=== PATIENT | male | born 1995 | race Caucasian/White ===

== ENCOUNTER 2017-04-28 12:59 | Emergency (ER) | payer SELFPAY ==
[2017-04-28] MEDS ORDERED: Ibuprofen 800 MG TAB ONE (14:23)
[2017-04-28] MEDS ORDERED: Gentamicin Ophth Ointment 0.3% 3.5 gm Tube ONE (14:23)
== END 2017-04-28 14:35 | disposition home or self-care (01) ==
LOC: MADERS 12:59
DX: H20.9 Unspecified iridocyclitis (principal)
CPT/HCPCS: 99282

== ENCOUNTER 2017-10-03 10:04 | Emergency (ER) | payer OTHER ==
[2017-10-03] MEDS ORDERED: MORPHINE 10 MG/ML SYRINGE ONE (10:57)
[2017-10-03] MEDS ORDERED: Ondansetron HCl/PF 4 MG/2 ML Vial ONE (10:58)
[2017-10-03] MEDS ORDERED: Ketorolac Tromethamine 30 MG/ML VIAL ONE (10:58)
[2017-10-03] MEDS ORDERED: Metoclopramide HCl 10 MG/2 ML VIAL ONE (10:58)
[2017-10-03 11:23] LABS: Bilirubin Moderate (Negative); Blood, Urine Negative (Negative); Clarity Clear (Clear); Glucose, Urine (Dipstick) >=1000 mg/dL (Negative); Leukocyte Negative (Negative); Nitrite Negative (Negative); Protein, Urine (Dipstick) 30 mg/dL (Neg-Trace); Specific Gravity, Urine 1.025 (1.005-1.030)
[2017-10-03 11:38] LABS: #Basophils 0.1 thou/uL (0.0-0.2); #Eosinphils 0.1 thou/uL (0.0-0.7); #Lymphocytes 2.5 thou/uL (1.20-3.40); #Monocytes 0.8 thou/uL (0.11-0.59); #Neutrophils 4.7 thou/uL (1.40-6.50); %Basophils 0.9 % (0.0-1.0); %Eosinophils 1.7 % (0.0-10.0); %Lymphocytes 30.7 % (21.0-51.0); %Monocytes 9.7 % (0.0-10.0); Hemoglobin 16.1 g/dL (14.0-18.0); Mean Corpuscular HGB CONC 33.4 g/dL (32.0-36.0); Mean Corpuscular Hemoglobin 27.2 pg (27.0-31.0); Mean Corpuscular Volume 81.4 fl (80.0-94.0); Mean Platelet Volume 7.5 fL (7.4-10.4); Platelet Count 308 thou/uL (130-400); RBC Distribution Width 10.3 % (11.5-14.5); Red Blood Cell (RBC) Count 5.93 mill/uL (4.70-6.10); White Blood Cell (WBC) Count 8.2 thou/uL (4.8-10.8)
[2017-10-03 11:44] LABS: Bacteria/HPF Rare-Few HPF (None Seen); Crystals/HPF RARE AMORPH URATES HPF (Negative); RBC/HPF None Seen HPF (0-3); Squamous Epithelial 0-3 HPF (0-3); WBC/HPF None Seen HPF (0-3)
[2017-10-03 11:53] LABS: ALT (SGPT) 24 U/L (8-55); AST (SGOT) 11 U/L (5-34); Albumin 4.5 g/dL (3.5-5.0); Alkaline Phosphatase 58 U/L (40-150); Anion Gap 15 mmol/L (10-20); BUN (Urea Nitrogen) 14 mg/dL (8.9-20.6); Bilirubin, Total 0.9 mg/dL (0.2-1.2); Calc. Creatinine Clearance 0 mL/min (70-130); Calcium 9.7 mg/dL (7.8-10.44); Carbon Dioxide 25 mmol/L (22-29); Chloride 103 mmol/L (98-107); Estimated GFR-MDRD Greater than 90; Globulin 2.8 g/dL (2.4-3.5); Glucose 223 mg/dL (70-105); Lipase 20 U/L (8-78); Potassium 4.4 mmol/L (3.5-5.1); Protein, Total 7.3 g/dL (6.0-8.3); Sodium 139 mmol/L (136-145)
[2017-10-03] MEDS ORDERED: Sodium Chloride 0.9% 1,000 ML BAG ONE (14:12)
== END 2017-10-03 13:32 | disposition home or self-care (01) ==
LOC: MADERS 10:04
DX: E86.0 Dehydration (principal); R11.2 Nausea with vomiting, unspecified; E11.9 Type 2 diabetes mellitus without complications
CPT/HCPCS: 80053; 81001; 82150; 83690; 85025; 85652; 87086; 96361; 96374; 96375; J1885; J2270; J2405; J2765; J7050

== ENCOUNTER 2021-03-03 20:23 | Emergency (ER) | payer OTHER ==
[2021-03-03 21:24] LABS: #Basophils 0.1 thou/uL (0.0-0.2); #Lymphocytes 0.6 thou/uL (1.20-3.40); #Monocytes 0.7 thou/uL (0.11-0.59); #Neutrophils 5.2 thou/uL (1.40-6.50); %Basophils 1.2 % (0.0-1.0); %Eosinophils 0.2 % (0.0-10.0); %Lymphocytes 8.8 % (21.0-51.0); %Monocytes 10.7 % (0.0-10.0); %Neutrophils 79.2 % (42.0-75.0); Hemoglobin 14.4 g/dL (14.0-18.0); Mean Corpuscular HGB CONC 32.1 g/dL (32.0-36.0); Mean Corpuscular Hemoglobin 26.8 pg (27.0-31.0); Mean Corpuscular Volume 83.4 fL (78.0-98.0); Mean Platelet Volume 8.3 fL (7.4-10.4); Platelet Count 171 thou/uL (130-400); RBC Distribution Width 11.1 % (11.5-14.5); Red Blood Cell (RBC) Count 5.38 mill/uL (4.70-6.10); White Blood Cell (WBC) Count 6.5 thou/uL (4.8-10.8)
[2021-03-03] MEDS ORDERED: Acetaminophen 500 MG TAB ONE (21:26)
[2021-03-03] MEDS ORDERED: Ondansetron PF 4 MG/2 ML Vial ONE (21:26)
[2021-03-03] MEDS ORDERED: Sodium Chloride 0.9% 1,000 ML ONE (21:26)
[2021-03-03 21:39] LABS: Base Excess-Venous 2.3 mmol/L (-2.0 to 3.0); Bicarbonate (HCO3v) 24.6 mmol/L (22.0-28.0); CO2 Tension (PvCO2) 30.8 mmHg (42.0-51.0); Calcium, Ionized 0.92 mmol/L (1.15-1.33); Chloride 102 mmol/L (98-107); Hemoglobin - Calc 14.5 g/dL (14.0-18.0); Potassium 3.8 mmol/L (3.5-5.1); Sodium 138 mmol/L (138-145); T. Carbon Dioxide 25.6 mmol/L (22.0-28.0); vO2 Saturation-calc 76.4 % (60.0-85.0)
[2021-03-03 21:42] LABS: ALT (SGPT) 21 U/L (8-55); AST (SGOT) 15 U/L (5-34); Albumin 4.4 g/dL (3.5-5.0); Alkaline Phosphatase 77 U/L (40-110); Anion Gap 17 mmol/L (10-20); BUN (Urea Nitrogen) 15 mg/dL (8.9-20.6); Bilirubin, Total 0.5 mg/dL (0.2-1.2); Calc. Creatinine Clearance 0 mL/min (70-130); Calcium 9.3 mg/dL (7.8-10.44); Carbon Dioxide 24 mmol/L (22-29); Chloride 101 mmol/L (98-107); Globulin 2.8 g/dL (2.4-3.5); Glucose 339 mg/dL (70-105); Magnesium 1.6 mg/dL (1.6-2.6); Phosphorus 2.8 mg/dL (2.3-4.7); Potassium 3.9 mmol/L (3.5-5.1); Protein, Total 7.2 g/dL (6.0-8.3); Sodium 138 mmol/L (136-145)
[2021-03-03] MEDS ORDERED: Ibuprofen 800 MG TAB ONE (22:34)
[2021-03-03 23:05] LABS: SARS-CoV-2 NAA Rapid Test DETECTED (NotDetected)
== END 2021-03-03 23:21 | disposition home or self-care (01) ==
LOC: MADERS 20:23
DX: U07.1 COVID-19 (principal); E13.40 Other specified diabetes mellitus with diabetic neuropathy, unspecified; Z79.4 Long term (current) use of insulin
CPT/HCPCS: 0240U; 36416; 80053; 82330; 82435; 82803; 83735; 84100; 84132; 84295; 85014; 85025; 96374; J2405; J7050

== ENCOUNTER 2021-03-11 10:22 | Emergency (ER) | payer OTHER ==
[2021-03-11] MEDS ORDERED: Ondansetron PF 4 MG/2 ML Vial ONE (11:09)
[2021-03-11 11:24] LABS: #Lymphocytes 1.2 thou/uL (1.20-3.40); #Monocytes 0.8 thou/uL (0.11-0.59); #Neutrophils 4.8 thou/uL (1.40-6.50); %Basophils 0.4 % (0.0-1.0); %Eosinophils 0.2 % (0.0-10.0); %Lymphocytes 17.5 % (21.0-51.0); %Monocytes 11.8 % (0.0-10.0); %Neutrophils 70.1 % (42.0-75.0); Hemoglobin 16.2 g/dL (14.0-18.0); Mean Corpuscular HGB CONC 31.6 g/dL (32.0-36.0); Mean Corpuscular Hemoglobin 26.2 pg (27.0-31.0); Mean Corpuscular Volume 82.7 fL (78.0-98.0); Mean Platelet Volume 9.2 fL (7.4-10.4); Platelet Count 202 thou/uL (130-400); RBC Distribution Width 11.1 % (11.5-14.5); Red Blood Cell (RBC) Count 6.21 mill/uL (4.70-6.10); White Blood Cell (WBC) Count 6.8 thou/uL (4.8-10.8)
[2021-03-11 11:37] LABS: ALT (SGPT) 32 U/L (8-55); AST (SGOT) 26 U/L (5-34); Albumin 4.5 g/dL (3.5-5.0); Alkaline Phosphatase 80 U/L (40-110); Anion Gap 24 mmol/L (10-20); BUN (Urea Nitrogen) 23 mg/dL (8.9-20.6); Bilirubin, Total 0.7 mg/dL (0.2-1.2); Calc. Creatinine Clearance 0 mL/min (70-130); Calcium 9.1 mg/dL (7.8-10.44); Carbon Dioxide 23 mmol/L (22-29); Globulin 3.2 g/dL (2.4-3.5); Glucose 281 mg/dL (70-105); Potassium 4.3 mmol/L (3.5-5.1); Protein, Total 7.7 g/dL (6.0-8.3)
[2021-03-11 11:51] LABS: Base Excess-Venous 1.8 mmol/L (-2.0 to 3.0); Bicarbonate (HCO3v) 26.3 mmol/L (22.0-28.0); CO2 Tension (PvCO2) 40.1 mmHg (42.0-51.0); Calcium, Ionized 1.03 mmol/L (1.15-1.33); Chloride 104 mmol/L (98-107); Hemoglobin - Calc 17.7 g/dL (14.0-18.0); Potassium 4.1 mmol/L (3.5-5.1); Sodium 141 mmol/L (138-145); T. Carbon Dioxide 27.5 mmol/L (22.0-28.0); vO2 Saturation-calc 99.4 % (60.0-85.0)
[2021-03-11 11:56] LABS: Chloride 99 mmol/L (98-107); Sodium 142 mmol/L (136-145)
== END 2021-03-11 12:30 | disposition home or self-care (01) ==
LOC: MADERS 10:22
DX: U07.1 COVID-19 (principal); E86.0 Dehydration; E13.40 Other specified diabetes mellitus with diabetic neuropathy, unspecified; Z79.4 Long term (current) use of insulin; Z79.899 Other long term (current) drug therapy
CPT/HCPCS: 36416; 71045; 80053; 82330; 82435; 82803; 83605; 84132; 84295; 85014; 85025; J2405

== ENCOUNTER 2021-12-01 04:06 | Emergency (ER) | payer OTHER ==
[2021-12-01] MEDS ORDERED: Ondansetron PF 4 MG/2 ML Vial ONE (04:40)
[2021-12-01] MEDS ORDERED: Ketorolac Tromethamine 30 MG/ML VIAL ONE (04:40)
[2021-12-01] MEDS ORDERED: Sodium Chloride 0.9% 1,000 ML ONE (04:40)
[2021-12-01 04:43] LABS: #Eosinphils 0.1 thou/uL (0.0-0.7); #Lymphocytes 1.3 thou/uL (1.20-3.40); #Monocytes 0.9 thou/uL (0.11-0.59); #Neutrophils 8.4 thou/uL (1.40-6.50); %Basophils 0.4 % (0.0-1.0); %Eosinophils 1.2 % (0.0-10.0); %Lymphocytes 11.9 % (21.0-51.0); %Monocytes 7.9 % (0.0-10.0); %Neutrophils 78.6 % (42.0-75.0); Hemoglobin 13.7 g/dL (14.0-18.0); Mean Corpuscular HGB CONC 31.1 g/dL (32.0-36.0); Mean Corpuscular Hemoglobin 26.1 pg (27.0-31.0); Mean Corpuscular Volume 84.1 fL (78.0-98.0); Mean Platelet Volume 8.7 fL (7.4-10.4); Platelet Count 249 thou/uL (130-400); RBC Distribution Width 11.2 % (11.5-14.5); Red Blood Cell (RBC) Count 5.24 mill/uL (4.70-6.10); White Blood Cell (WBC) Count 10.7 thou/uL (4.8-10.8)
[2021-12-01 05:03] LABS: ALT (SGPT) 28 U/L (8-55); AST (SGOT) 15 U/L (5-34); Albumin 4.1 g/dL (3.5-5.0); Alkaline Phosphatase 65 U/L (40-110); Anion Gap 16 mmol/L (10-20); BUN (Urea Nitrogen) 14 mg/dL (8.9-20.6); Bilirubin, Total 0.8 mg/dL (0.2-1.2); Calc. Creatinine Clearance 0 mL/min (70-130); Calcium 9.2 mg/dL (7.8-10.44); Carbon Dioxide 29 mmol/L (22-29); Chloride 99 mmol/L (98-107); Globulin 2.9 g/dL (2.4-3.5); Glucose 267 mg/dL (70-105); Lipase 23 U/L (8-78); Magnesium 1.8 mg/dL (1.6-2.6); Potassium 4.1 mmol/L (3.5-5.1); Sodium 140 mmol/L (136-145)
[2021-12-01] MEDS ORDERED: Sodium Chloride 0.9% 100 ML ONE (06:41)
[2021-12-01] MEDS ORDERED: Piperacillin/Tazobactam 4.5 GM VIAL ONE (06:41)
[2021-12-01 07:27] LABS: SARS-CoV-2 NAA Rapid Test Not Detected (NotDetected)
[2021-12-01] MEDS ORDERED: Iopamidol 370 76% 100 ML VIAL ONE (13:04)
== END 2021-12-01 08:40 | disposition short-term general hospital (02) ==
LOC: MADERS 04:06
DX: K37 Unspecified appendicitis (principal); E10.40 Type 1 diabetes mellitus with diabetic neuropathy, unspecified; Z20.822 Contact with and (suspected) exposure to COVID-19
CPT/HCPCS: 74177; 80053; 83690; 83735; 85025; 87040; 93005; 96365; 96375; J1885; J2405; J2543; J3490; J7050; Q9967; U0002